=== PATIENT | female | born 1950 | race Caucasian/White ===

== ENCOUNTER 2018-01-16 21:16 | Emergency (ER) | payer MEDICARE ==
--- NOTE | 2018-01-16 22:45 | ED Physician Documentation ---
PD HPI ALTERED MENTAL STATUS - Stated complaint Stated Complaint: TOOK TOO MUCH INSULIN - Chief complaint Chief Complaint: General - History obtained from History obtained from: Patient - History of Present Illness Timing - onset: How many hours ago (10/11), Today Timing - details: Abrupt onset (she says she accidentally took her short acting insulin insteady of the long acting at 8 pm before bed. Usually takes just 2-3 units of Humolog insulin with meals (up to 5 units if sugar high or big meal). She took 18 units of it thinking it was her long acting dose (is visiting here so her meds were in different place than usual). She ate a lot of proteins and carbs. Sugar was doing okay there, but was concerned that it might drop low. Here for evaluation. She is feeling okay.) Quality / character: No: Less responsive, Confused Associated symptoms: No: Fever, Headache, Cough, NVD Contributing factors: Other (took wrong insulin dose for bedtime) Basline status: Alert and oriented X 3 Treatment [employer]: Accucheck Similar symptoms before: Has not had sx before Recently seen: Not recently seen Review of Systems Constitutional: denies: Fever Nose: denies: Rhinorrhea / runny nose, Congestion Throat: denies: Sore throat Cardiac: denies: Chest pain / pressure, Palpitations Respiratory: denies: Dyspnea, Cough GI: denies: Abdominal Pain, Nausea, Vomiting, Diarrhea : denies: Dysuria, Frequency Neurologic: denies: Generalized weakness, Focal weakness, Numbness, Near syncope , Altered mental status PD PAST MEDICAL HISTORY - Past Medical History Past Medical History: Yes Endocrine/Autoimmune: Type 2 diabetes - Past Surgical History Past Surgical History: Yes Ortho: Other - Social History Does the pt smoke?: No Smoking Status: Never smoker Does the pt drink ETOH?: Yes Substance Use and Type: Marijuana - POLST Patient has POLST: No PD ED PE NORMAL - Vitals Vital signs reviewed: Yes - General General: Alert and oriented X 3, No acute distress, Well developed/nourished - HEENT HEENT: Pharynx benign - Neck Neck: Supple, no meningeal sign, No adenopathy - Cardiac Cardiac: RRR, No murmur - Respiratory Respiratory: Clear bilaterally - Abdomen Abdomen: Soft, Non tender - Derm Derm: Normal color, Warm and dry - Neuro Neuro: Alert and oriented X 3, No motor deficit, Normal speech Results - Vitals Vitals: Oxygen O2 Source Room air PD MEDICAL DECISION MAKING - ED course Complexity details: reviewed results (She did have a drop in blood sugar to 29 soon after arrival and given D50 amp IV. Given more food to eat. Checking sugars regularly after that, seems to be staying adequate. Will continue the Q30 -60 minute FSBS for likely about 6 hours to ensure maintains good level and outlasts the insulin half-life. ), re-evaluated patient (patient held in ED long enough to have consistently normal FSBS without needing extra IV meds. ), considered differential (Expect the effect of the short acting insulin to last at most 4-6 hours, so will check sugars every 30-60 minutes and see how she does. ), d/w patient Departure - Departure Disposition: 01 Home, Self Care Clinical Impression: Overdose of insulin Qualifiers: Encounter type: initial encounter Injury intent: accidental or unintentional Qualified Code(s): T38.3X1A - Poisoning by insulin and oral hypoglycemic [ antidiabetic] drugs, accidental (unintentional), initial encounter Condition: Stable Record reviewed to determine appropriate education?: Yes Instructions: ED Overdose Accidental Comments: Regular diet and medications starting in the morning. Drink lots of fluids. Discharge Date/Time: 01/17/18 01:55
[2018-01-16] MEDS ORDERED: DEXTROSE 50% ABBOJECT 25 GM/50 ML SYRINGE IVP STA (23:10)
[2018-01-17 01:55] VITALS: BP 163/91
== END 2018-01-17 01:55 | disposition home or self-care (01) ==
LOC: ED 21:16
DX: T38.3X1A Poisoning by insulin and oral hypoglycemic [antidiabetic] drugs, accidental (unintentional), initial encounter (principal); E11.9 Type 2 diabetes mellitus without complications
CPT/HCPCS: 99283; 99284